=== PATIENT | female | born 1955 | race African-American/Black ===

== ENCOUNTER 2017-02-18 13:50 | Emergency (ER) | payer OTHER ==
[~2017-02-18] VITALS: Ht 167.6 cm; Wt 126.1 kg
[~2017-02-18 13:50] MED LIST: ACETAMINOPHEN-1 EAC1 ORAL; DEBROX15 M1 LEFT EAR; IBUPROFEN600 MG ORAL; NORCO 5-325 TA1 EACH ORAL; NORVASC10 MG ORAL; PHENOBARBITAL15 MG PO; PROMETHAZINE-D118 ML ORAL; SEROQUEL100 MG ORAL; TYLENOL EXTRA500 MG ORAL; ZYRTEC10 MG ORAL
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
[2017-02-18] MEDS ORDERED: ACETAMINOPHEN-1 EAC1 ORAL (14:23)
[2017-02-18] MEDS ORDERED: [UNRECOGNIZED DRUG - OTHER] TP (14:23)
[2017-02-18] MEDS ORDERED: CEPHALEXIN500 MG ORAL (14:23)
[2017-02-18 14:29] VITALS: BP 139/82
[2017-02-18] MEDS ORDERED: Silver Sulfadiazine Cream 25gm TOPIC ONE (14:30)
[2017-02-18] MEDS ORDERED: Tylenol #3 tab (300mg/30mg) ORAL ONE (14:30)
[2017-02-18 14:37] VITALS: BP 139/82
== END 2017-02-18 15:15 | disposition home or self-care (01) ==
LOC: EMR 15:10
DX: T65.91XA Toxic effect of unspecified substance, accidental (unintentional), initial encounter (principal); I10 Essential (primary) hypertension; T21.41XA Corrosion of unspecified degree of chest wall, initial encounter; T32.0 Corrosions involving less than 10% of body surface; Y92.009 Unspecified place in unspecified non-institutional (private) residence as the place of occurrence of the external cause
CPT/HCPCS: 99284; Z7502